=== PATIENT | male | born 1985 | race Caucasian/White ===

== ENCOUNTER 2016-10-09 00:47 | Emergency (ER) | payer SELFPAY ==
[2016-10-09] MEDS ORDERED: OXYCODONE HCL 5 MG TABLET ONE (01:56)
== END 2016-10-09 02:08 | disposition home or self-care (01) ==
LOC: ED 00:47
DX: M79.671 Pain in right foot (principal); M72.2 Plantar fascial fibromatosis; F17.210 Nicotine dependence, cigarettes, uncomplicated
CPT/HCPCS: 99283 ×2; A9270